=== PATIENT | female | born 1970 | race Caucasian/White ===

== ENCOUNTER 2019-05-12 12:28 | Emergency (ER) | payer MEDICAID ==
[~2019-05-12] VITALS: Ht 157.5 cm; Wt 76.2 kg
--- NOTE | 2019-05-12 13:01 | NUR ---
Note edy in ED - 05/12/19 at 1302 by [email or web address] 12 LEAD EKG DONE, DR. MUELLER CHECKED . PT BACK TO [facility] WITH STABLE CONDITION.
[2019-05-12 13:05] VITALS: BP 110/74
--- NOTE | 2019-05-12 13:56 | NUR ---
PATIENT AMBULATED TO ER BED 8.
--- NOTE | 2019-05-12 14:42 | NUR ---
PT BIB FAMILY/SON C/O RIGHT FOOT HURT X 3 WEEKS, CAP REFILL-IMM, DENIES INJURIES/TRAUMA. RIGHT FOOT-SWELLING, BRUISING, NOTED-07/25. SKIN IS INTACT, PINK/WARM/DRY; AAOX4, PERRL, UNSTEADY GAIT; LUNGS CLEAR BL, BREATHING UNLABORED; HR EVEN AND REGULAR, BL PERIPHERAL PULSES PRESENT; BS ACTIVE X4, NO TENDERNESS TO PALPATION. PT DENIES ANY FEVER, CP, SOB, OR COUGH AT THIS TIME; PT STATES 10/10 PAIN AT THIS TIME; VSS; PATIENT POSITIONED FOR COMFORT; HOB ELEVATED; BEDRAILS UP X2; BED DOWN.
[2019-05-12] MEDS ORDERED: KETOROLAC 60 MG/2 ML VIAL IM ONE (15:30)
--- NOTE | 2019-05-12 15:56 | NUR ---
MEDICATION ADMNISTERED ORDERED;NADR AT THIS TIME.
--- NOTE | 2019-05-12 16:00 | NUR ---
Crutches and splint provided by Silvestre ZELAYA.
[2019-05-12 16:07] VITALS: BP 110/74
--- NOTE | 2019-05-12 16:08 | NUR ---
Patient discharged with v/s stable. Written and verbal after care instructions given and explained. Patient alert, oriented and verbalized understanding of instructions. Ambulatory with assistance of crutches . All questions addressed prior to discharge. ID band removed. Patient advised to follow up with PMD. Rx of Motrin given. Patient educated on indication of medication including possible reaction and side effects. Opportunity to ask questions provided and answered.
== END 2019-05-12 16:08 | disposition home or self-care (01) ==
LOC: MED 12:28
DX: S92.331A Displaced fracture of third metatarsal bone, right foot, initial encounter for closed fracture (principal); X58.XXXA Exposure to other specified factors, initial encounter; Y93.89 Activity, other specified; Y92.89 Other specified places as the place of occurrence of the external cause; Y99.8 Other external cause status
CPT/HCPCS: 29515; 73630; 81025; 96372; 99283; J1885

== ENCOUNTER 2020-07-04 06:15 | Emergency (ER) | payer MEDICAID ==
[~2020-07-04] VITALS: Ht 157.5 cm; Wt 76.2 kg
[2020-07-04 06:24] VITALS: BP 144/90
--- NOTE | 2020-07-04 06:29 | NUR ---
PT AMBULATED TO ER BED 08
[2020-07-04 06:45] VITALS: BP 144/90
--- NOTE | 2020-07-04 06:46 | NUR ---
NO NURSING INTERVENTION DONE.
--- NOTE | 2020-07-04 06:46 | NUR ---
Patient discharged with v/s stable. Written and verbal after care instructions given and explained. Patient verbalized understanding. Ambulatory with steady gait. All questions addressed prior to discharge. Advised to follow up with PMD.
== END 2020-07-04 06:40 | disposition home or self-care (01) ==
LOC: MED 06:15
DX: Z00.01 Encounter for general adult medical examination with abnormal findings (principal)
CPT/HCPCS: 99281

== ENCOUNTER 2020-10-01 13:23 | Emergency (ER) | payer MEDICAID ==
[~2020-10-01] VITALS: Ht 157.5 cm; Wt 73.9 kg
[2020-10-01 13:38] VITALS: BP 127/81
--- NOTE | 2020-10-01 16:20 | NUR ---
PT ASSESSMENT COMPLETED BY SANCHO , NO NURSING INTERVENTIONS NEEDED AT THIS TIME.
[2020-10-01 16:29] VITALS: BP 125/88
--- NOTE | 2020-10-01 16:29 | NUR ---
Patient discharged with v/s stable. Written and verbal after care instructions given and explained. Patient alert, oriented and verbalized understanding of instructions. Ambulatory with steady gait. All questions addressed prior to discharge. ID band removed. Patient advised to follow up with PMD. Rx of BENADRYL & PREDNISONE given. Patient educated on indication of medication including possible reaction and side effects. Opportunity to ask questions provided and answered.
== END 2020-10-01 16:29 | disposition home or self-care (01) ==
LOC: MED 13:23
DX: T78.40XA Allergy, unspecified, initial encounter (principal); R21 Rash and other nonspecific skin eruption; X58.XXXA Exposure to other specified factors, initial encounter
CPT/HCPCS: 99283

== ENCOUNTER 2021-01-01 13:43 | Emergency (ER) | payer MEDICAID ==
[~2021-01-01] VITALS: Ht 157.5 cm; Wt 72.6 kg
[2021-01-01 13:51] VITALS: BP 147/91
[2021-01-01] MEDS ORDERED: MECLIZINE 25 MG TAB PO ONE (14:40)
[2021-01-01 15:05] LABS: BASOPHILS % (AUTO) 0.6 % (0.0-2.0); EOSINOPHILS # (AUTO) 0.1 K/uL (0-0.4); EOSINOPHILS % (AUTO) 1.8 % (0.0-4.0); HEMATOCRIT 41.4 % (36-48); HEMOGLOBIN 14.1 g/dL (12.0-16.0); LYMPHOCYTES # (AUTO) 1.9 K/uL (2.5-16.5); LYMPHOCYTES % (AUTO) 32.8 % (20.5-51.1); MEAN CORPUSCULAR HEMOGLOBIN 31 pg (27-31); MEAN CORPUSCULAR HGB CONC 34 g/dL (33-37); MEAN CORPUSCULAR VOLUME 91.2 fL (80-94); MONOCYTES # (AUTO) 0.6 K/uL (0.8-1.0); NEUTROPHILS # (AUTO) 3.1 K/uL (1.8-7.7); NEUTROPHILS % (AUTO) 54.8 % (42.2-75.2); PLATELET COUNT (AUTO) 282 K/uL (140-450); RED BLOOD CELL COUNT(AUTO) 4.54 MIL/uL (4.20-5.40); RED CELL DISTRIBUTION WIDTH 13.5 % (11.6-13.7); WHITE BLOOD COUNT (AUTO) 5.7 K/uL (4.8-10.8)
[2021-01-01 15:19] LABS: ANION GAP 13.9 (8-16); CARBON DIOXIDE 25.8 mmol/L (21-32); CREATININE 0.6 mg/dL (0.6-1.3); POTASSIUM 3.7 mmol/L (3.5-5.1); TOTAL BILIRUBIN 0.4 mg/dL (0.0-1.0)
[2021-01-01] MEDS ORDERED: MECL-303 PO (15:24)
[2021-01-01] MEDS ORDERED: NAPR-54 PO (15:24)
[2021-01-01 15:38] VITALS: BP 147/91
== END 2021-01-01 15:36 | disposition home or self-care (01) ==
LOC: MED 13:43
DX: R42 Dizziness and giddiness (principal); R51.9 Headache, unspecified; R00.2 Palpitations; Z79.899 Other long term (current) drug therapy
CPT/HCPCS: 36415; 80053; 81002; 81025; 85025; 93005; 99284; J8597

== ENCOUNTER 2021-11-05 08:40 | Emergency (ER) | payer MEDICAID ==
[~2021-11-05] VITALS: Ht 157.5 cm; Wt 75.3 kg
[~2021-11-05 08:40] MED LIST: MECL-303 PO; NAPR-54 PO
[2021-11-05 08:57] VITALS: BP 151/97
[2021-11-05 09:23] LABS: BASOPHILS % (AUTO) 0.6 % (0.0-2.0); EOSINOPHILS # (AUTO) 0.1 K/uL (0-0.4); EOSINOPHILS % (AUTO) 1.4 % (0.0-4.0); HEMATOCRIT 41.7 % (36-48); HEMOGLOBIN 14.1 g/dL (12.0-16.0); LYMPHOCYTES # (AUTO) 2.1 K/uL (2.5-16.5); LYMPHOCYTES % (AUTO) 33.5 % (20.5-51.1); MEAN CORPUSCULAR HEMOGLOBIN 31 pg (27-31); MEAN CORPUSCULAR HGB CONC 34 g/dL (33-37); MEAN CORPUSCULAR VOLUME 91.4 fL (80-94); MONOCYTES # (AUTO) 0.5 K/uL (0.8-1.0); MONOCYTES % (AUTO) 7.8 % (1.7-9.3); NEUTROPHILS # (AUTO) 3.5 K/uL (1.8-7.7); NEUTROPHILS % (AUTO) 56.7 % (42.2-75.2); PLATELET COUNT (AUTO) 285 K/uL (140-450); RED BLOOD CELL COUNT(AUTO) 4.56 MIL/uL (4.20-5.40); RED CELL DISTRIBUTION WIDTH 12.9 % (11.6-13.7); WHITE BLOOD COUNT (AUTO) 6.2 K/uL (4.8-10.8)
[2021-11-05 09:40] LABS: ANION GAP 13.3 (8-16); CREATININE 0.7 mg/dL (0.6-1.3); POTASSIUM 4.3 mmol/L (3.5-5.1)
[2021-11-05 10:33] LABS: THYROID STIMULATING HORMONE 1.12 uIU/mL (0.34-3.74)
[2021-11-05 11:17] VITALS: BP 151/97
[2021-11-05] MEDS ORDERED: [UNRECOGNIZED DRUG - CODE] PO (11:50)
== END 2021-11-05 11:18 | disposition home or self-care (01) ==
LOC: MED 08:40
DX: R42 Dizziness and giddiness (principal); Z79.899 Other long term (current) drug therapy
CPT/HCPCS: 36415; 80048; 81002; 83735; 84443; 84484; 85025; 93005; 99284

== ENCOUNTER 2022-12-29 18:19 | Emergency (ER) | payer MEDICAID ==
[~2022-12-29 18:19] MED LIST changes: +[UNRECOGNIZED DRUG - CODE] PO
== END 2022-12-29 18:20 | disposition left against medical advice (07) ==
LOC: MED 18:19
DX: M79.673 Pain in unspecified foot (principal); Z53.21 Procedure and treatment not carried out due to patient leaving prior to being seen by health care provider